=== PATIENT | male | born 1960 | race Caucasian/White ===

== ENCOUNTER → 2020-12-26 | Outpatient (CLI) | payer MEDICARE, OTHER ==
[~2020-12-26] MED LIST: ALLO100T PO; CELE200C PO; IOHEXOL 240 MG/ML 50ML VIAL. ONE; IOHEXOL 240 MG/ML 50ML VIAL. PO ONE; IOHEXOL 300 MG/ML 75 ML VIAL. IV ONE; LEVO125T PO; LISI40TA6 PO; METF850T8 PO; NEBI5TAB2 PO; OMEP20CA5 PO; OXYC10TA PO; SIMV20TA PO; ZOLM5TAB13 PO
[2020-12-26 10:45] LABS: GFR 76.2
--- NOTE | 2020-12-26 12:29 | RAD ---
CT of the abdomen and pelvis with contrast 12/26/2020 12:23 PM Indication: Reason: DIFFUSE ABD PAIN / Spl. Instructions: / History: Comparison study: None Technique: Multidetector CT imaging of the abdomen and pelvis was performed following the administrat ion of IV contrast. Findings: The partially visualized lung bases demonstrate no acute abnormality. The liver, gallbladder, spleen, bilateral adrenal glands, bilateral kidneys, and pancreas, are grossl y unremarkable. There is no bowel obstruction. No evidence of acute inflammatory change involving vis ualized bowel is identified. Distal predominant colonic diverticulosis noted. Appendix is visualized and unremarkable in appearance. Bladder is grossly unremarkable. No free fluid or free air is seen in the abdomen or pelvis. Laminectomy and fusion at L4-S1 noted.No acute osseous changes are identified . Impression: 1.No evidence of acute intra-abdominal abnormality is identified. 2. Colonic diverticulosis CT DOSING PQRS STATEMENT: One or more of the following individualized dose reduction techniques were utilized for this examinat ion: 1. Automated exposure control 2. Adjustment of the mA and/or kV according to patient size 3. Use of iterative reconstruction technique Electronically signed by: Fabricio Chinchilla MD (12/26/2020 12:27 PM) [id number]
== END ==
LOC: CT 10:02
PROVIDERS: ATTEND Internal Medicine Gastroenterology
DX: K57.30 Diverticulosis of large intestine without perforation or abscess without bleeding (principal)
CPT/HCPCS: 36415; 74177; 82565; 84520; Q9967